=== PATIENT | female | born 1985 | race Two or more races ===

== ENCOUNTER → 2018-07-23 | Emergency (ER) | payer OTHER ==
[~2018-07-23] VITALS: Ht 160 cm; Wt 61.2 kg
[~2018-07-23] MED LIST: DILANTIN100 MG; MEDROLPACK PO; ZYRTEC10 MG PO
== END | disposition home or self-care (01) ==
LOC: ER 20:09
DX: T78.1XXA Other adverse food reactions, not elsewhere classified, initial encounter (principal); L53.8 Other specified erythematous conditions